=== PATIENT | female | born 1995 | race Caucasian/White ===

== ENCOUNTER 2017-05-24 22:11 | Emergency (ER) | payer MEDICAID, SELFPAY ==
[2017-05-24 22:14] VITALS: BP 114/68; PULSE 82; RESP 19; TEMP 36.8; O2SAT 100; BMI 25.5
--- NOTE | 2017-05-24 22:22 | EKG12_ITS ---
Test Reason : CP Blood Pressure : / mmHG Vent. Rate : 084 BPM Atrial Rate : 084 BPM P-R Int : 168 ms QRS Dur : 090 ms QT Int : 362 ms P-R-T Axes : 050 056 036 degrees QTc Int : 427 ms Normal sinus rhythm Normal ECG Confirmed by HENRIQUE JORDAN MD ([id number]), pictures editor JENNYFER QUAN ([id number] on 05/28/2017 4:33:12 PM Referred By: CHALINO Confirmed By:HENRIQUE JORDAN MD
--- NOTE | 2017-05-24 22:23 | ED.VISSUMM ---
- ER Visit Summary Date of Service: 05/24/17 Chief Complaint: [] Chest pain History of Present Illness: The patient is a 22 F complaining of chest discomfort that started at work 3 hours ago. She got into an argument with her coworkers and started crying and fell to the ground with left-sided chest pain. She has a history of anxiety. She describes as a throb. She no cardiac PE risk factors. Paramedics brought her in from work. Physical Examination: [] Vital signs reviewed General: Well-nourished well-developed Head: Normocephalic atraumatic Eyes: Pupils equal round and reactive to light extraocular movements intact ENT: TMs clear no hemotympanum no trauma Neck: Nontender full range of motion Cardiovascular: Regular rate rhythm no murmurs normal S1-S2 Respiratory: No distress clear to auscultation bilaterally chest nontender Abdomen: Soft nontender nondistended normal bowel sounds no masses Back: Nontender no CVA tenderness Extremities: Nontender active range of motion ?4 extremities no trauma Skin: Normal color no trauma Neuro alert oriented cranial nerves II through XII intact normal strength sensation reflexes Test Results: [] Emergency Department Course and Treatment: [] Patient has IV. Given Toradol. EKG obtained. It shows nothing acute. At this time I do not feel the patient has an acute cause of her symptoms. This is suspected anxiety related. She will follow-up as an outpatient Treatment Plan: [] Disposition: [] Impression: [] Noncardiac chest pain suspected anxiety This note was generated with [employer] dictation software. It may contain incorrect words, spelling, and punctuation that were not noted in review of the chart prior to signing ED Disposition - Plan for ED Patient: Disposition: Home or Assisted Living Chief Complaint: Chest Pain Instructions: ED Chest Pain NonCardiac Referrals: Rodrigo Mendoza DO [NON-STAFF] - Care Physician,No Primary [Primary Care Provider] -
--- NOTE | 2017-05-24 22:24 | ED.DEP ---
ED Disposition - Plan for ED Patient: Disposition: Home or Assisted Living Chief Complaint: Chest Pain Instructions: ED Chest Pain NonCardiac Referrals: Care Physician,No Primary [Primary Care Provider] - Rodrigo Mendoza DO [NON-STAFF] -
[2017-05-24] MEDS: Ketorolac 30 MG/ML Syringe IV (22:38)
[2017-05-24 22:39] VITALS: BP 116/76; PULSE 85; RESP 23; O2SAT 100
[2017-05-24 22:48] VITALS: BP 117/94; PULSE 86; RESP 22; O2SAT 97
[2017-05-24 23:08] VITALS: BP 112/62; PULSE 88; RESP 27; O2SAT 99
== END 2017-05-24 23:12 | disposition home or self-care (01) ==
LOC: ED 22:39
PROVIDERS: Emergency Provider Emergency Medicine
DX: R07.89 Other chest pain (principal); F41.9 Anxiety disorder, unspecified
CPT/HCPCS: 90471; 93005; 96374; 99285; A4216

== ENCOUNTER 2023-07-09 21:41 | Emergency (ER) | payer MEDICAID, SELFPAY ==
[2023-07-09 21:43] VITALS: BP 138/89; PULSE 74; RESP 18; TEMP 36.2; O2SAT 100; BMI 33.7
--- NOTE | 2023-07-09 22:07 | ED.VIS.GI ---
HPI HPI - GI History of Present Illness Chief Complaint: Abd Pain Informant: patient Abdominal Pain/Flank Pain Onset: Today Context: Gradual Onset Timing: Continuous Quality: Cramping and Stabbing Location: LUQ, LLQ and Left Flank Worsened by: Movement Relieved by: Remaining Still Nausea/Vomiting/Emesis GI Symptom: Positive for Nausea; Negative for Vomiting Diarrhea/Melena/Hematochezia GI Symptom: Positive for Diarrhea; Negative for Melena or Hematochezia Associated Symptoms Associated Symptoms: Negative for Dysuria, Frequency or Hematuria LMP: Current Narrative Narrative: Patient presents with abdominal pain that began today. Patient states it is gradually gotten worse. Patient states it is mainly over the left side of her abdomen. Patient describes it as cramping and stabbing. Patient states it is worse with certain movements. Patient states it is better when she remains still. Patient admits to some nausea but denies any vomiting. Patient admits to some diarrhea but denies any melena or hematochezia. Patient denies any dysuria, frequency, or hematuria. Patient states she is currently on her menstrual cycle but states she has missed some of her menstrual periods recently. [facility] Medical History (Updated 07/09/23 @ 23:[address] Jamil Reyez DO) Abdominal pain Anxiety Depression Home Medications sertraline 50 mg tablet 50 mg PO DAILY 05/24/17 [History Last Taken Unknown] sulfamethoxazole 800 mg-trimethoprim 160 mg tablet 1 tab PO BID #6 TABLETS 07/09/23 [Rx Last Taken Unknown] Allergy/AdvReac Type Severity Reaction Status Date / Time No Known Allergies Allergy Verified 07/09/23 21:43 Surgical History (Updated 07/09/23 @ 22:[address] Jamil Reyez DO) Hx of cholecystectomy Social History Smoking Status: Unknown if ever smoked ROS ROS ED Constitutional Constitutional ED: Reports chills; Denies fever(s) Eyes Eyes: Denies blurry vision or change in vision ENT ENT ED: Denies rhinorrhea or sore throat Cardiovascular Cardiovascular: Reports chest pain; Denies palpitations Respiratory/Chest Respiratory/Chest: Denies cough or dyspnea Gastrointestinal Gastrointestinal: Reports abdominal pain, diarrhea and nausea; Denies vomiting Genitourinary Genitourinary ED: Denies dysuria or hematuria Musculoskeletal Musculoskeletal: Reports back pain; Denies neck pain Integumentary Denies abscess or rash Neurologic Neurologic: Denies headache(s) or weakness Allergic/Immunologic Allergic/Immunologic ED: Denies mouth swelling or urticaria EXAM Physical Exam Const Vital Signs: 07/09/23 21:43 07/09/23 22:52 Temperature 97.1 F L 98.1 F Temperature Source Temporal Oral Pulse Rate 74 73 Respiratory Rate 18 16 Blood Pressure 138/89 H 112/70 Blood Pressure Mean 105 84 Pulse Ox 100 99 Oxygen Delivery Method Room Air Room Air Positive well nourished, well developed and obese General Appearance ED: well developed and NAD Nutritional Appearance: obese HEENT Reports moist mucous membranes Neck supple and no JVD Resp normal respiratory effort and clear to auscultation bilaterally Cardio regular rate and regular rhythm GI non-distended Palpation: soft and tender LLQ, LUQ and suprapubic; Negative for guarding or rebound tenderness present Extremity full ROM General Extremety ED: Negative for edema or tenderness General Extremity: Negative for edema Neuro CN's II-XII intact bilaterally, moves all extremities and no sensory deficits noted Sensorium / Orientation: alert Motor Exam: strength 5/5 throughout Psych mental status grossly normal and thought process normal MDM MDM MDM Narrative Medical decision making narrative: Differential diagnosis includes ureteral calculus, pyelonephritis, gastroenteritis, diverticulitis, bowel obstruction, perforation, ectopic , ovarian cyst, and dysmenorrhea. CBC will be obtained to assess for leukocytosis and anemia. Basic metabolic profile will be obtained to assess for electrolyte abnormality and renal function. Serum hCG will be obtained to assess for . Urinalysis will be obtained to assess for urinary tract infection and hematuria. CT scan of the abdomen pelvis will be obtained to assess for ureteral calculus, diverticulitis, bowel obstruction, and perforation. Lab Data Attestation: I reviewed the patient's lab results. Lab results narrative: CBC was reviewed and was within normal limits. Basic metabolic profile was reviewed and was essentially within normal limits. Serum hCG was reviewed and was negative. Urinalysis was reviewed. Leukocyte esterase was 100 with 25-50 white blood cells and 1+ bacteria. Labs: Laboratory Results - last 24 hr 07/09/23 07/09/23 22:00 22:45 WBC 6.6 RBC 4.45 Hgb 12.0 Hct 38.8 MCV 87.2 MCH 27.0 MCHC 30.9 L RDW Std Deviation 45.5 H RDW Coeff of Maxi 14.2 Plt Count 302 MPV 10.9 Immature Gran % (Auto) 0.200 Neut % (Auto) 54.9 Lymph % (Auto) 33.4 [place] % (Auto) 9.5 Eos % (Auto) 1.7 Baso % (Auto) 0.3 Absolute Neuts (auto) 3.6 Absolute Lymphs (auto) 2.21 Nucleated RBC % 0 Sodium 140 Potassium 3.7 Chloride 109 H Carbon Dioxide 28.0 Anion Gap 3 L BUN 8 Creatinine 0.80 Estim Creat Clear Calc 101.80 Est GFR (MDRD) Af Amer 110 Est GFR (MDRD) Non-Af 91 BUN/Creatinine Ratio 10.0 Glucose 100 Calcium 8.8 Serum , Qual NEGATIVE Urine Color Yellow Urine Clarity Clear Urine pH 7.0 Ur Specific [place] 1.010 Urine Protein 15 H Urine Glucose (UA) Normal Urine Ketones Negative Urine Occult Blood 25 H Urine Nitrite Negative Urine Bilirubin Negative Urine Urobilinogen 1 H Ur Leukocyte Esterase 100 H Urine RBC 0-5 SEEN Urine WBC 25-50 SEEN Ur Squamous Epith Cells 0-5 SEEN Urine Bacteria 1+ Urine Mucus 0 SEEN Radiography Diagnostic Testing: Clinical Impression(s) from Imaging Studies Abdomen/Pelvis CT 07/09/23 22:41 IMPRESSION: 1. No evidence of urolithiasis or hydronephrosis. 2. Status post cholecystectomy. Electronically Signed: Vishal Singh DO at 23:35 EDT , CT scan of the abdomen pelvis was obtained. There is no ureteral calculus or hydronephrosis noted. There is no acute abnormality noted. There is no free air or free fluid noted. This was interpreted by the radiologist and was also independently reviewed by myself. Additional Tests and Interventions Additional Tests or Interventions: Urine culture was ordered. Treatment and Re-Evaluation :: Patient was given IV fluids, morphine, and Zofran. Patient was feeling better on reevaluation. Patient was given a dose of Rocephin here. Patient was given a prescription for Bactrim. Patient was instructed to follow-up with her primary care physician in 5 to 7 days for reevaluation. Patient understood and was agreeable with the plan. All questions were answered. Discharge Plan Triage Chief Complaint: Abd Pain ED Provider: Jamil Reyez Dx/Rx/DC Orders Clinical Impression: Urinary tract infection, Obesity (BMI 30-39.9) Instructions: ED Cystitis Female Adult Prescriptions: New sulfamethoxazole-trimethoprim [sulfamethoxazole-trimethoprim] 800-160 mg tablet 1 tab PO BID Qty: 6 0RF No Action sertraline 50 MG tablet 50 mg PO DAILY Primary Care Provider: Care Physician,No Primary Referrals: Isabelle Brar MD [Med Staff - Aeronautical Engineering Officer] - 5-7 Days Care Physician,No Primary [Primary Care Provider] - Disposition Disposition: Home, Self Care
--- NOTE | 2023-07-09 22:41 | CT_ITS ---
EXAM: CT ABDOMEN AND PELVIS WITHOUT INTRAVENOUS CONTRAST CLINICAL INDICATION: pain TECHNIQUE: Helically acquired images were obtained of the abdomen and pelvis without intravenous contrast. This CT exam was performed using one or more of the following dose reduction techniques: automated exposure control, adjustment of the mA and/or kV according to patient size, and/or use of iterative reconstruction technique. COMPARISON: No relevant prior studies available. FINDINGS: LOWER THORAX: No significant abnormality. Lung bases are clear. No cardiomegaly. No significant pericardial effusion. ABDOMEN: LIVER: No significant abnormality. Homogeneous. GALLBLADDER AND BILE DUCTS: Status post cholecystectomy. No intra- or extrahepatic biliary ductal dilation. PANCREAS: No significant abnormality. No focal cystic mass. SPLEEN: Splenic granulomas. Otherwise, the spleen appears normal. ADRENALS: No significant abnormality. No nodules. KIDNEYS AND URETERS: No significant abnormality. Normal renal size and position. No evidence of urolithiasis or hydronephrosis. STOMACH AND BOWEL: No significant abnormality. No stomach or bowel distention. No focal inflammatory change. PELVIS: APPENDIX: There is a normal appendix in the right lower quadrant. BLADDER: The urinary bladder is mostly decompressed. REPRODUCTIVE: Normal as visualized. No mass. ABDOMEN and PELVIS: INTRAPERITONEAL SPACE: No significant abnormality. No ascites or other fluid collection. No free air. BONES/JOINTS: No significant abnormality. No suspicious lytic or blastic abnormality. SOFT TISSUES: Small fat-containing umbilical hernia. VASCULATURE: No significant abnormality. Abdominal aorta is non-dilated. LYMPH NODES: No significant abnormality. No enlarged lymph nodes. CT/Abdomen/Pelvis without Cont IMPRESSION: 1. No evidence of urolithiasis or hydronephrosis. 2. Status post cholecystectomy. Electronically Signed: Vishal Singh DO at 23:35 EDT ,
[2023-07-09] MEDS: 0.9% Normal Saline (1000mL) 1,000 ML 1000 ML IV (22:50)
[2023-07-09] MEDS: Ondansetron 4 MG/2 ML Vial IV (22:50)
[2023-07-09] MEDS: Morphine 4 MG/ML Syringe IV (22:50)
[2023-07-09 22:51] LABS: Color, Urine Yellow (Yellow); Glucose, Dipstick Normal (Normal); Ketone-Dipstick Negative (Negative); Leukocyte Esterase-Dipstick 100 /ul (Negative); Mucous, Urine 0 SEEN /hpf (<or=2+); Nitrite-Dipstick Negative (Negative); Occult Blood-Urine 25 /ul (Negative); Protein-Dipstick 15 mg/dl (Negative); Urine Bilirubin Dipstick Negative (Negative); Urine Clarity Clear (Clear); Urine Urobilinogen 1 mg/dl (Normal)
[2023-07-09 22:52] VITALS: BP 112/70; PULSE 73; RESP 16; TEMP 36.7; O2SAT 99
[2023-07-09 22:52] LABS: Absolute Lymphocyte Count 2.21 X10^3/uL (0.83-4.51); Absolute Neutrophil Count 3.6 X10^3/uL (2.0-7.7); Basophil# 0.02 X10^3/uL; Basophil% 0.3 % (0-1); Eosinophil# 0.11 X10^3/uL; Eosinophils% 1.7 % (0-5); Hematocrit 38.8 % (37-47); Lymphocyte # 2.21 X10^3/ul (0.83-4.51); Lymphocyte % 33.4 % (19-41); Mean Corp Hgb Conc 30.9 g/dL (32-36); Mean Corpuscular Volume 87.2 fL (81-99); Mean Platelet Vol. 10.9 fl (6.2-12.0); Monocyte# 0.63 X10^3/uL; Monocyte% 9.5 % (0-10); NRBC Flagged by Analyzer 0 % (0-5); Neutrophil # 3.63 X10^3/uL (2.7-7.7); Neutrophil % 54.9 % (47-70); Platelet Count 302 K/mm3 (150-450); RBC Distribution Width CV 14.2 % (11.6-14.6); RBC Distribution Width SD 45.5 fl (35.1-43.9); Red Blood Count 4.45 M/mm3 (4.2-5.4); White Blood Count 6.6 K/mm3 (4.4-11.0)
[2023-07-09 22:57] LABS: Bacteria 1+ /hpf (None Seen); Squamous Epithelial Cells - UA 0-5 SEEN /hpf (5-10); White Blood Cells 25-50 SEEN /hpf (0-5)
[2023-07-09 22:58] LABS: Red Blood Cells-Urine 0-5 SEEN /hpf (0-5)
[2023-07-09 22:59] LABS: Internal QC Validated? YES +Cl - CLEAR BKGD; Pregnancy, Serum, hCG Quali. NEGATIVE Negative
[2023-07-09 23:05] LABS: Anion Gap 3 (5-15); BUN 8 mg/dL (7-18); Calcium,Total 8.8 mg/dL (8.5-10.1); Chloride 109 mmol/L (98-107); EST Glomerular Filtration Rate 91 mL/min (>60); Est Glom Filt Rate - Afr Amer 110 mL/min (>60); Glucose 100 mg/dL (74-106); Potassium 3.7 mmol/L (3.5-5.1); Sodium Level 140 mmol/L (136-145)
[2023-07-10] MEDS: Ceftriaxone 1 GM/50 ML BAG IV (00:12)
[2023-07-10 00:15] VITALS: BP 127/82; PULSE 66; RESP 18; TEMP 36.3; O2SAT 100
== END 2023-07-10 00:38 | disposition home or self-care (01) ==
PROVIDERS: Emergency Provider Emergency Medicine; Visit Provider Emergency Medicine
DX: N39.0 Urinary tract infection, site not specified (principal); R11.10 Vomiting, unspecified; R19.7 Diarrhea, unspecified; E66.9 Obesity, unspecified; Z90.49 Acquired absence of other specified parts of digestive tract
CPT/HCPCS: 74176; 80048; 81001; 84703; 85025; 87077; 87086; 87088; 87186; 99283; J7030; A4216; J2405

== ENCOUNTER 2023-09-12 17:42 | Emergency (ER) | payer MEDICAID, SELFPAY ==
[2023-09-12] VITALS (7 sets, daily range): BP systolic 103–116; BP diastolic 63–69; PULSE 85–103; RESP 13–22; TEMP 36.2–36.8; O2SAT 94–100; BMI 33.9
--- NOTE | 2023-09-12 17:59 | EX.ED.VIS.PS ---
HPI HPI - Psych History of Present Illness Chief Complaint: Suicidal Informant: patient Narrative Narrative: Patient states about 45 minutes - 60 minutes ago, she took about 12 of her prescription Vistaril at 1 time, she states she did not have any suicidal ideation or thoughts, she simply took what was left of her pills in order to try to help herself calm down but did not realize that there were 12 or so pills left in the bottle when she took them all 1 time. She states her boyfriend thought she was trying to kill herself and called 911 to have her brought to the hospital. She states at the time, she was not having thoughts of suicide and she denies that now. She states she was overwhelmed because she just found out she is around 5 weeks, she and her boyfriend have been having some issues, and she was feeling overwhelmed and has a history of anxiety. However -- when the boyfriend arrived, he states she said that she was going to kill herself as she took the pills. The patient denies this and states that she admits she does have a history of a suicide attempt remotely in the past for which she was admitted at [place], but did not say that today. [facility] Medical History Anxiety Depression Abdominal pain Home Medications ?Medication ?Instructions ?Recorded ?Last Taken ?Type duloxetine 20 mg capsule,delayed 20 mg PO BID 09/12/23 Unknown History release hydroxyzine pamoate 50 mg capsule 50 mg PO Q6H PRN PRN itch 09/12/23 Unknown History mupirocin 2 % topical ointment 1 applic topical TID 09/12/23 Unknown History vitamin with calcium 1 tab PO DAILY 09/12/23 Unknown History no.72-iron 27 mg-folic acid 1 mg tablet (WesTab Plus) pyridoxine (vitamin B6) 25 mg 25 mg PO TID 09/12/23 Unknown History tablet (Vitamin B-6) Allergy/AdvReac Type Severity Reaction Status Date / Time No Known Allergies Allergy Verified 07/09/23 21:43 Surgical History Hx of cholecystectomy Social History Smoking Status: Never smoker ROS ROS ED Constitutional Constitutional ED: Denies chills or fever(s) Eyes Eyes: Denies change in vision or diplopia ENT ENT ED: Denies rhinorrhea or sore throat Cardiovascular Cardiovascular: Denies chest pain or palpitations Respiratory/Chest Respiratory/Chest: Denies cough or dyspnea Gastrointestinal Gastrointestinal: Denies abdominal pain, diarrhea, nausea or vomiting Genitourinary Genitourinary ED: Denies dysuria or hematuria Musculoskeletal Musculoskeletal: Denies back pain or neck pain Integumentary Denies abscess or rash Neurologic Neurologic: Denies headache(s), paresthesias or weakness Psychiatric Psychiatric: Reports anxiety; Denies suicidal ideation or suicidal thoughts EXAM Physical Exam Const Vital Signs: 09/12/23 17:43 09/12/23 18:44 09/12/23 19:41 Temperature 98.2 F 97.4 F L Temperature Source Temporal Temporal Pulse Rate 95 90 89 Respiratory Rate 22 H 20 H 21 H Blood Pressure 116/63 105/69 105/66 Blood Pressure Mean 80 81 79 Pulse Ox 100 98 99 Oxygen Delivery Method Room Air Room Air Room Air 09/12/23 20:15 09/12/23 21:15 Temperature 97.8 F 98 F Temperature Source Temporal Temporal Pulse Rate 103 H 85 Respiratory Rate 13 18 Blood Pressure 109/66 110/69 Blood Pressure Mean 80 82 Pulse Ox 99 94 Oxygen Delivery Method Room Air Room Air Positive well nourished and well developed General Appearance ED: well developed and NAD HEENT Reports moist mucous membranes normocephalic and atraumatic Eyes PERRL and EOMs intact bilaterally Neck full ROM and supple Resp normal respiratory effort and clear to auscultation bilaterally Cardio regular rate, regular rhythm and no murmurs GI non-tender and non-distended Auscultation: normoactive bowel sounds Palpation: soft Back/Spine no CVA tenderness General Back: other FROM Extremity normal to inspection General Extremety ED: Negative for edema, pulses abnormal or tenderness General Extremity: Negative for edema or pulses abnormal Neuro oriented x3, CN's II-XII intact bilaterally and no sensory deficits noted Sensorium / Orientation: awake and alert Motor Exam: strength 5/5 throughout Psych mental status grossly normal, thought process normal, cooperative, affect normal, speech normal, activity/motor behavior normal, denies hallucinations, denies homicidal ideation and denies suicidal ideation Skin no rashes or lesions noted and no wounds MDM MDM MDM Narrative Medical decision making narrative: At this time the patient presents like she made a poor choice and was just taking these medications to help with her anxiety, and states that she was not suicidal then and is not now. However the significant other is basically saying that she is lying and that she said that she wanted to kill herself. For these reasons I am doing a workup, having a sitter, and consulting psychiatry. In addition I gave her 15 g of charcoal to drink which she did without difficulty given that she is . This is not a life-threatening or majorly toxic ingestion. It is possible it could give her some anticholinergic symptoms, at this time she does not have them but she will be watched/monitored here in emergency department for now. Patient has been observed here for 2 hours, 3 hours postingestion. She is asymptomatic and not tachycardic, vital signs are normal, she does not have dilated pupils, and her workup is negative including coingestants and toxicology otherwise. Her potassium is 3.3 which I do not think is necessarily due to the ingestion. Her QTc is normal. I discussed with poison control. They state that the hydroxyzine usually peaks at about 2 hours, but given the number of pills that she took, #12 hydroxyzine 50 mg tablets, there could be delayed absorption and they recommend at the very least a 6-hour observation. If still exhibiting no anticholinergic effects by the end of that, she would be medically cleared and able to have psychiatric evaluation. Will be checked out to the night physician at shift change. Lab Data Attestation: I reviewed the patient's lab results. Labs: Laboratory Results - last 24 hr 09/12/23 09/12/23 18:10 18:20 WBC 6.0 RBC 4.69 Hgb 12.8 Hct 40.0 MCV 85.3 MCH 27.3 MCHC 32.0 RDW Std Deviation 40.5 RDW Coeff of Maxi 13.1 Plt Count 324 MPV 9.8 Immature Gran % (Auto) 0.300 Neut % (Auto) 63.5 Lymph % (Auto) 28.3 [place] % (Auto) 6.4 Eos % (Auto) 1.2 Baso % (Auto) 0.3 Absolute Neuts (auto) 3.8 Absolute Lymphs (auto) 1.69 Nucleated RBC % 0 Sodium 136 Potassium 3.3 L Chloride 106 Carbon Dioxide 27.0 Anion Gap 3 L BUN 8 Creatinine 0.88 Estim Creat Clear Calc 92.84 Est GFR (MDRD) Af Amer 98 Est GFR (MDRD) Non-Af 81 BUN/Creatinine Ratio 9.0 L Glucose 111 H Calcium 9.3 Total Bilirubin 0.60 AST 13 L ALT 15 Alkaline Phosphatase 66 Total Protein 7.9 Albumin 3.8 Globulin 4.1 Albumin/Globulin Ratio 0.9 Salicylates < 1.7 L Urine Opiates Screen NEGATIVE Urine Methadone Screen NEGATIVE Acetaminophen < 2.0 L Ur Barbiturates Screen NEGATIVE Ur Phencyclidine Scrn NEGATIVE Ur Amphetamines Screen NEGATIVE MDMA (Ecstasy) Screen NEGATIVE U Benzodiazepines Scrn NEGATIVE Urine Cocaine Screen NEGATIVE U Cannabinoids Screen POSITIVE H Ur Drug Screen Comment Ethyl Alcohol < 3.0 Rhythm Strip Rhythm Strip: Sinus Rhythm Rate: 95 Ectopy: None EKG Initial EKG: Attestation: I personally reviewed and interpreted this EKG as follows: Interpretation: Sinus Rhythm and No Acute Injury Pattern Comments: Normal EKG. Normal QTc. Management Discussion w/another healthcare provider: [employer] Aircraft Mechanic (poison control) Discharge Plan Triage Chief Complaint: Suicidal ED Provider: Rafa Hernández Dx/Rx/DC Orders Clinical Impression: Accidental overdose, Acute reaction to situational stress Prescriptions: No Action hydroxyzine pamoate 50 mg capsule 50 mg PO Q6H PRN PRN (Reason: itch) duloxetine 20 mg capsule,delayed release(DR/EC) 20 mg PO BID pyridoxine (vitamin B6) [Vitamin B-6] 25 mg tablet 25 mg PO TID mupirocin 2 % ointment 1 applic topical TID WesTab Plus 27 mg iron- 1 mg tablet 1 tab PO DAILY Primary Care Provider: Yaw Menard Referrals: Care Physician,No Primary [Non-Staff] - Print Language: Filipino
[2023-09-12] MEDS: Activated Charcoal 25 GM/120 ML BOT PO (18:04)
--- NOTE | 2023-09-12 18:33 | EKG12_ITS ---
Test Reason : OD/PSYCH Blood Pressure : / mmHG Vent. Rate : 082 BPM Atrial Rate : 082 BPM P-R Int : 168 ms QRS Dur : 082 ms QT Int : 364 ms P-R-T Axes : 040 054 025 degrees QTc Int : 425 ms Normal sinus rhythm Normal ECG Confirmed by Rishabh Kumar ([id number]), makeup editor SERENITY NATHAN ([id number]) on 09/16/2023 8:59:21 AM Referred By: Confirmed By:Rishabh Kumar
[2023-09-12 18:34] LABS: Absolute Lymphocyte Count 1.69 X10^3/uL (0.83-4.51); Absolute Neutrophil Count 3.8 X10^3/uL (2.0-7.7); Basophil# 0.02 X10^3/uL; Basophil% 0.3 % (0-1); Eosinophil# 0.07 X10^3/uL; Eosinophils% 1.2 % (0-5); Hemoglobin 12.8 g/dL (12.0-15.0); Lymphocyte # 1.69 X10^3/ul (0.83-4.51); Lymphocyte % 28.3 % (19-41); Mean Corpuscular Hgb 27.3 pg (27.0-32.0); Mean Corpuscular Volume 85.3 fL (81-99); Mean Platelet Vol. 9.8 fl (6.2-12.0); Monocyte# 0.38 X10^3/uL; Monocyte% 6.4 % (0-10); NRBC Flagged by Analyzer 0 % (0-5); Neutrophil # 3.79 X10^3/uL (2.7-7.7); Neutrophil % 63.5 % (47-70); Platelet Count 324 K/mm3 (150-450); RBC Distribution Width CV 13.1 % (11.6-14.6); RBC Distribution Width SD 40.5 fl (35.1-43.9); Red Blood Count 4.69 M/mm3 (4.2-5.4)
[2023-09-12 18:48] LABS: ALB/GLOB Ratio 0.9 RATIO (0.9-2.4); AST(SGOT) 13 U/L (15-37); Alanine Aminotransfer ALT/SGPT 15 U/L (13-56); Albumin, Serum 3.8 g/dL (3.2-5.0); Alkaline Phosphatase 66 U/L (45-117); Anion Gap 3 (5-15); BUN 8 mg/dL (7-18); Calcium,Total 9.3 mg/dL (8.5-10.1); Chloride 106 mmol/L (98-107); Creatinine, Serum 0.88 mg/dL (0.55-1.02); EST Glomerular Filtration Rate 81 mL/min (>60); Est Glom Filt Rate - Afr Amer 98 mL/min (>60); Estimated Creatinine Clearance 92.84 ml/min; Globulin 4.1 g/dL (2.2-4.2); Glucose 111 mg/dL (74-106); Potassium 3.3 mmol/L (3.5-5.1); Protein, Total 7.9 g/dL (6.4-8.2); Sodium Level 136 mmol/L (136-145)
[2023-09-12 18:50] LABS: Amphetamine Urine VISTA NEGATIVE (<1000 ng/mL); Barbiturate Urine VISTA NEGATIVE (< 200 ng/mL); Benzodiazepine Urine VISTA NEGATIVE (< 200 ng/mL); Cocaine Urine VISTA NEGATIVE (< 300 ng/mL); Ecstacy Urine VISTA NEGATIVE (< 500 ng/mL); Methadone Urine VISTA NEGATIVE (< 300 ng/mL); PCP Urine VISTA NEGATIVE (< 25 ng/mL); THC Urine VISTA POSITIVE (< 50 ng/mL); Vista UDS pH Range 5
[2023-09-12 18:58] LABS: Alcohol, Blood (Medical)-Serum < 3.0 mg/dL
[2023-09-12 19:12] LABS: Acetaminophen (Tylenol) Level < 2.0 ug/mL (10.0-30.0); Salicylate < 1.7 mg/dL (2.8-20.0)
--- NOTE | 2023-09-12 22:23 | ED.RN ---
When pt arrived, she stated she did not want to harm herself, she just felt anxious. However, her boyfriend stated that he thought she was trying to harm herself and has a history of suicide attempt.
--- NOTE | 2023-09-12 22:35 | ED.RN ---
The patient stated she is upset because she did not get to see her little girl today. This RN asked if she tried harming herself because of that and she denies it.
[2023-09-13] VITALS: BP 133/87; PULSE 75; RESP 16; O2SAT 98
[2023-09-13 01:00] VITALS: BP 115/72; PULSE 67; RESP 16; O2SAT 98
[2023-09-13 02:00] VITALS: BP 114/67; PULSE 94; RESP 18; O2SAT 98
[2023-09-13 03:00] VITALS: BP 110/80; PULSE 97; RESP 18; TEMP 37.1; O2SAT 99
== END 2023-09-13 03:19 | disposition home or self-care (01) ==
PROVIDERS: Emergency Provider Emergency Medicine; PCP Internal Medicine Interventional Cardiology; Visit Provider Emergency Medicine
DX: T45.0X1A Poisoning by antiallergic and antiemetic drugs, accidental (unintentional), initial encounter (principal); F41.9 Anxiety disorder, unspecified; F43.0 Acute stress reaction; Z90.49 Acquired absence of other specified parts of digestive tract; F32.A Depression, unspecified
CPT/HCPCS: 80053; 80307; 80320; 80329; 85025; 93005; 99285; A4216; G0480